=== PATIENT | female | born 1960 | race Caucasian/White ===

== ENCOUNTER 2025-01-31 10:04 | Emergency (ER) | payer OTHER ==
[~2025-01-31] VITALS: Ht 162.6 cm; Wt 114.0 kg
[~2025-01-31 10:04] MED LIST: BIO; CALCIUM500 M3 PO; GARLIC1 EACH PO; Z BIOTIN PO; Z.0.ALEVE220 M1 PO; Z.0.FISH OIL500 MG PO; [UNRECOGNIZED DRUG - OTHER] PO; calcium; fish oil; lipitor PO; multi vitamin
[2025-01-31 10:09] VITALS: PULSE 120; RESP 20; TEMP 98.2
[2025-01-31] MEDS: TETANUS/DIPHTHERIA TOX ADULT 0.5 ML SYR IM ONE (11:06)
[2025-01-31 11:15] VITALS: BP 152/102; PULSE 100; RESP 20; TEMP 97.5; O2SAT 96
== END 2025-01-31 11:15 | disposition home or self-care (01) ==
LOC: FSED 10:10
DX: M25.512 Pain in left shoulder (principal); S51.812A Laceration without foreign body of left forearm, initial encounter; W01.0XXA Fall on same level from slipping, tripping and stumbling without subsequent striking against object, initial encounter; Y93.01 Activity, walking, marching and hiking; Y92.89 Other specified places as the place of occurrence of the external cause; E78.00 Pure hypercholesterolemia, unspecified
CPT/HCPCS: 90714; 99284